=== PATIENT | male | born 1965 | race Caucasian/White ===

== ENCOUNTER 2018-07-15 00:10 | Outpatient (CLI) | payer BC ==
[2018-07-15 15:39] LABS: #Basophils 0.1 thou/uL (0.0-0.2); #Eosinphils 0.4 thou/uL (0.0-0.7); #Lymphocytes 2.2 thou/uL (1.20-3.40); #Monocytes 0.4 thou/uL (0.11-0.59); #Neutrophils 7.6 thou/uL (1.40-6.50); %Basophils 0.9 % (0.0-1.0); %Eosinophils 3.7 % (0.0-10.0); %Lymphocytes 20.2 % (21.0-51.0); %Monocytes 3.8 % (0.0-10.0); %Neutrophils 71.3 % (42.0-75.0); Hemoglobin 14.1 g/dL (14.0-18.0); Mean Corpuscular HGB CONC 32.1 g/dL (32.0-36.0); Mean Corpuscular Hemoglobin 30.2 pg (27.0-31.0); Mean Corpuscular Volume 94.1 fL (78.0-98.0); Mean Platelet Volume 9.6 fL (7.4-10.4); Platelet Count 170 thou/uL (130-400); RBC Distribution Width 12.4 % (11.5-14.5); Red Blood Cell (RBC) Count 4.67 mill/uL (4.70-6.10); White Blood Cell (WBC) Count 10.7 thou/uL (4.8-10.8)
[2018-07-15 15:50] LABS: ALT (SGPT) 23 U/L (8-55); AST (SGOT) 21 U/L (5-34); Albumin 4.3 g/dL (3.5-5.0); Alkaline Phosphatase 90 U/L (40-150); Anion Gap 12 mmol/L (10-20); BUN (Urea Nitrogen) 13 mg/dL (8.4-25.7); Bilirubin, Total 0.3 mg/dL (0.2-1.2); Calc. Creatinine Clearance 0 mL/min (70-130); Calcium 9.4 mg/dL (7.8-10.44); Carbon Dioxide 25 mmol/L (22-29); Chloride 105 mmol/L (98-107); Estimated GFR-MDRD 77; Globulin 2.7 g/dL (2.4-3.5); Glucose 74 mg/dL (70-105); Potassium 4.1 mmol/L (3.5-5.1); Sodium 138 mmol/L (136-145)
--- NOTE | 2018-07-16 22:25 | EKG ---
Test Reason : Blood Pressure : / mmHG Vent. Rate : 079 BPM Atrial Rate : 079 BPM P-R Int : 152 ms QRS Dur : 094 ms QT Int : 336 ms P-R-T Axes : 077 098 053 degrees QTc Int : 385 ms Normal sinus rhythm with sinus arrhythmia Rightward axis Borderline ECG No previous ECGs available Confirmed by Odette OVIEDO ([id number]) on 07/16/2018 10:25:26 PM Referred By: JEREMY Confirmed By:Odette OVIEDO
== END 2018-07-15 00:11 | disposition home or self-care (01) ==
LOC: LABBT 00:10
PROVIDERS: ATTEND Surgery
DX: Z01.818 Encounter for other preprocedural examination (principal); K40.90 Unilateral inguinal hernia, without obstruction or gangrene, not specified as recurrent
CPT/HCPCS: 80053; 85025; 93005; 93010

== ENCOUNTER 2018-07-19 05:43 | Day surgery (SDC) | payer BC ==
[2018-07-15 08:43] VITALS: BMI 24.4
[2018-07-19] MEDS ORDERED: Fentanyl 100 MCG/2 ML VIAL ONE ×2 (06:31→09:10)
[2018-07-19] MEDS ORDERED: Bupivacaine/Epinephrine 0.25% 30 ML VIAL ONE (06:49)
--- NOTE | 2018-07-19 14:04 | OP ---
DATE OF PROCEDURE: 07/19/2018 PREOPERATIVE DIAGNOSIS: Right inguinal hernia. PROCEDURE PERFORMED: Right inguinal hernia repair with mesh. INDICATIONS: A 52-year-old male with painful bulge in the right groin, found to have a hernia. FINDINGS: Right direct inguinal hernia. DESCRIPTION OF PROCEDURE: After informed consent was obtained, the patient was taken to the operating room, given general mask anesthesia, placed in the supine position. His right groin was prepped and draped in usual fashion. Local anesthesia was infiltrated subcutaneously and deep. A transverse right inguinal incision was performed. Subcu divided sharply. The external oblique fascia was incised in the direction of its fibers through the external ring. Spermatic cord was isolated with a Ariel drain. Cremasteric fibers were . There was a tiny little indirect sac, but there was a larger direct inguinal hernia. The sac was dissected from surrounding cord structures down to the internal ring and reduced. The direct hernia was circumscribed and reduced. A PHS hernia system was inserted to reduce both of the hernia components. The posterior layer was placed in the preperitoneal space, anterior was laid out, sutured to the pubic tubercle medially, tucked under the external oblique fascia laterally. Hemostasis was assured. The cord was placed anatomically. The external oblique fascia was closed with a running 3-0 Vicryl. Shivani was closed with interrupted 3-0 Vicryl and skin closed with a running subcuticular 4-0 Rapide. Steri-Strips were applied. Sterile bandage was applied. The patient tolerated the procedure well, transferred to Recovery in good condition. Sponge and needle count verified correct x2. Job ID: [id number]
[2018-07-19] MEDS ORDERED: Ketorolac Tromethamine 30 MG/ML VIAL ONE (16:55)
[2018-07-19] MEDS ORDERED: Lidocaine 1% PF 5 ML VIAL ONE (16:55)
[2018-07-19] MEDS ORDERED: ePHEDrine 50 MG/ML VIAL ONE (16:55)
[2018-07-19] MEDS ORDERED: Dexamethasone 20 MG/5 ML VIAL ONE (16:55)
[2018-07-19] MEDS ORDERED: Ondansetron PF 4 MG/2 ML Vial ONE (16:55)
[2018-07-19] MEDS ORDERED: PROPOFOL 200 MG/20 ML VIAL ONE (16:55)
== END 2018-07-19 11:18 | disposition home or self-care (01) ==
LOC: SDC 05:43
PROVIDERS: ATTEND Surgery
PROC: 0YU50JZ Supplement Right Inguinal Region with Synthetic Substitute, Open Approach (ICD-10-PCS; principal; 2018-07-19)
DX: K40.90 Unilateral inguinal hernia, without obstruction or gangrene, not specified as recurrent (principal); K21.9 Gastro-esophageal reflux disease without esophagitis; M19.90 Unspecified osteoarthritis, unspecified site; F17.200 Nicotine dependence, unspecified, uncomplicated; Z98.1 Arthrodesis status
CPT/HCPCS: C1781; J0131; J0690; J3010